=== PATIENT | male | born 1945 | race Caucasian/White ===

== ENCOUNTER 2017-06-28 07:02 | Day surgery (SDC) | payer OTHER ==
[~2017-06-28 07:02] MED LIST: AVAPRO150 MG PO; NORVASC5 MG PO
== END 2017-06-28 13:35 | disposition home or self-care (01) ==
LOC: CIR.AMB 07:02
DX: D21.11 Benign neoplasm of connective and other soft tissue of right upper limb, including shoulder (principal)